=== PATIENT | female | born 2000 | race Caucasian/White ===

== ENCOUNTER 2023-11-30 11:53 | Emergency (ER) | payer BC, MEDICAID ==
[~2023-11-30] VITALS: Ht 152.4 cm; Wt 49.5 kg
[2023-11-30 11:59] VITALS: TEMP 98.4
[2023-11-30] MEDS: IBUPROFEN 400 MG TABLET PO ONE (14:29)
[2023-11-30] MEDS ORDERED: IBUP-1506 PO (14:52)
[2023-11-30] MEDS ORDERED: ACET-3385 PO (14:52)
[2023-11-30 15:04] VITALS: BP 118/72; PULSE 78; RESP 16
== END 2023-11-30 15:07 | disposition home or self-care (01) ==
LOC: EMS 11:53
DX: S46.012A Strain of muscle(s) and tendon(s) of the rotator cuff of left shoulder, initial encounter (principal); X58.XXXA Exposure to other specified factors, initial encounter; Y93.89 Activity, other specified; Y92.89 Other specified places as the place of occurrence of the external cause; Y99.8 Other external cause status
CPT/HCPCS: 99283

== ENCOUNTER 2024-10-23 17:23 | Emergency (ER) | payer OTHER ==
[~2024-10-23] VITALS: Ht 152.4 cm; Wt 50.0 kg
[~2024-10-23 17:23] MED LIST: ACET-3385 PO; IBUP-1506 PO
[2024-10-23 17:36] VITALS: TEMP 98.8
[2024-10-23 19:30] VITALS: BP 138/84; PULSE 66; RESP 18; O2SAT 99
[2024-10-23] MEDS: ACETAMINOPHEN 500 MG TABLET PO ONE (19:40)
[2024-10-23] MEDS: IBUPROFEN 600 MG TABLET PO ONE (19:40)
[2024-10-23] MEDS ORDERED: ACET-66 PO (20:19)
[2024-10-23] MEDS ORDERED: IBUP-1554 PO (20:19)
== END 2024-10-23 20:50 | disposition home or self-care (01) ==
LOC: EMS 17:23
DX: S16.1XXA Strain of muscle, fascia and tendon at neck level, initial encounter (principal); F12.90 Cannabis use, unspecified, uncomplicated; V43.52XA Car driver injured in collision with other type car in traffic accident, initial encounter; Y93.89 Activity, other specified; Y92.410 Unspecified street and highway as the place of occurrence of the external cause; Y99.8 Other external cause status
CPT/HCPCS: 71045; 72040; 99284